=== PATIENT | female | born 1960 | race Caucasian/White ===

== ENCOUNTER → 2023-06-21 15:09 | Outpatient (BNVA) | payer MEDICAID, SELFPAY | PROVIDERS: Visit Provider Surgery | DX: Z90.49 Acquired absence of other specified parts of digestive tract; R10.9 Unspecified abdominal pain; Z85.038 Personal history of other malignant neoplasm of large intestine | CPT/HCPCS: 99204 ==

== ENCOUNTER 2023-06-24 07:03 | Outpatient (CLI) | payer MEDICAID, SELFPAY ==
--- NOTE | 2023-06-24 07:15 | US_ITS ---
WS: [id number] RIGHT UPPER QUADRANT ULTRASOUND HISTORY: abdominal pain COMPARISON: None available. Liver: 16.1 cm in length. Normal size liver. There is a hyperechoic area in the central RIGHT lobe me asuring 3.0 x 4.1 x 2.5 cm. No bile duct dilatation. No hypoechoic mass. Portal Vein: Normal hepatopetal flow with monophasic waveform. Gallbladder: Gallbladder is distended with numerous stones and shadowing. Very small amount of gallbl adder lumen remains. No wall thickening. CBD: 0.4 cm Pancreas: Normal size and echogenicity. Right kidney: 6.9 cm in length. Atrophied RIGHT kidney. There is diffuse cortical thinning throughout the kidney. No mass or hydronephrosis. Normal vascularity is identified within the kidney. Aorta and IVC: Unremarkable abdominal aorta and IVC. No ascites. IMPRESSION: 1. Cholelithiasis without acute cholecystitis. Numerous stones are present in the gallbladder. No bi le duct dilatation. 2. Hyperechoic mass in the central liver measures 3.0 x 4.1 x 2.5 cm. Suspect this is most likely a benign hepatic hemangioma. With no prior studies for comparison suggest follow-up CT abdomen with hem angioma core protocol. 3. Atrophied RIGHT kidney. Diffuse cortical thinning with no obstruction.
== END 2023-06-24 07:04 | disposition home or self-care (01) ==
LOC: RAD 07:03
PROVIDERS: Visit Provider Surgery
DX: K80.20 Calculus of gallbladder without cholecystitis without obstruction (principal); R16.0 Hepatomegaly, not elsewhere classified; N26.1 Atrophy of kidney (terminal)
CPT/HCPCS: 76705

== ENCOUNTER 2023-10-28 05:53 | Day surgery (SDC) | payer MEDICAID, SELFPAY ==
[2023-10-28 06:08] VITALS: BP 88/71; PULSE 93; RESP 18; TEMP 36.3; O2SAT 97
--- NOTE | 2023-10-28 06:08 | W.PM.OPSFHP ---
Same Day Surgery H&P Indication for Procedure/HPI DATE OF PROCEDURE: October 28, 2023 CHIEF COMPLAINT/INDICATIONFOR SURGICAL PROCEDURE: need for screening colonoscopy PREOP DIAGNOSIS: need for screening colonoscopy PLANNED PROCEDURE: Operation Date: 10/28/23 07:00 Proposed Procedures p Colonoscopy 07800, G0105, Z85.048(Not Applicable) - Baldomero Ochoa MD Medications/Allergies* Home Medications Medication Instructions Recorded Confirmed Type atorvastatin 20 mg tablet 20 mg PO DAILY 06/21/23 10/26/23 History biotin 1 mg capsule 1 mg PO DAILY 06/21/23 10/26/23 History levothyroxine 88 mcg capsule 88 mcg PO ONCE 06/21/23 10/26/23 History multivitamin 1 tab PO DAILY 06/21/23 10/26/23 History Allergies/Adverse Reactions Allergy/AdvReac Type Severity Reaction Status Date / Time Sulfa (Sulfonamide Allergy tongue Verified 10/26/23 12:03 Antibiotics) swelling Pertinent History/Comorbid Conditions* Surgical History (Updated 07/23/23 @ 15:54 by Toshia Escalona) History of low anterior resection of rectum Family History (Updated 06/21/23 @ 15:20 by MARTELL Ramsey) Denies family history of Anesthesia complication Social History Smoking and tobacco/nicotine status: never used tobacco/nicotine Alcohol intake: current Alcohol intake frequency: holidays/special occasions only Pertinent Exam Findings alert, oriented x 3 and clear to auscultation bilaterally Recommendations Surgery/Procedure today Coding Level of Care Code Acute Code for Chg Fwd
[2023-10-28 06:09] VITALS: BMI 25.2
[2023-10-28] MEDS: sodium chloride 0.9% 1,000 ML 30 ML IV (06:26)
--- NOTE | 2023-10-28 06:36 | ANES.PREANE2 ---
Pre-Anesthetic Assessment Height/Weight: Height 1.68 m Weight 70.76 kg Temp Pulse Resp BP Pulse Ox O2 Del Method 97.3 F L 93 18 88/71 97 Room Air 10/28/23 06:08 10/28/23 06:08 10/28/23 06:08 10/28/23 06:08 10/28/23 06:08 10/28/23 06:08 Preop Diagnosis: need for screening colonoscopy Operation Date: 10/28/23 07:00 Proposed Procedures p Colonoscopy 42312, G0105, Z85.048(Not Applicable) - Baldomero Ochoa MD Familial anesthetic complications: none Last intake: Intake Last Liquid Date 10/27/23 Last Liquid Time 23:30 Last Solid Date 10/26/23 Social Cannibas use 1x week. last smoked 1700 10/27/23 Airway Submandibular: within normal limits Cervical ROM: within normal limits Mallampati: Class II Dentition: false (upper plate) Pulmonary None reported CV/HEM BP 88/71 upon arrival not symptomatic IVF given. 2016 spot on Kidney or Liver due for CT after this colonoscopy. Recto-colon Cancer found in 2017 colon resection. Hepatic see comment above. GI None reported Metabolic Hyperlipidemia and Thyroid Disease [facility] [place] None reported Neuropsych Depression Anesthetic Plan ASA status: 2 Anesthesia: MAC Medications/Allergies Home Medications Medication Instructions Recorded Confirmed Last Taken Type atorvastatin 20 mg tablet 20 mg PO DAILY 06/21/23 10/26/23 10/26/23 History biotin 1 mg capsule 1 mg PO DAILY 06/21/23 10/26/23 10/26/23 History levothyroxine 88 mcg capsule 88 mcg PO ONCE 06/21/23 10/26/23 10/26/23 History multivitamin 1 tab PO DAILY 06/21/23 10/26/23 10/26/23 History Allergies Allergy/AdvReac Type Severity Reaction Status Date / Time Sulfa (Sulfonamide Allergy tongue Verified 10/28/23 06:12 Antibiotics) swelling Current Medications Generic Name Dose Route Start Last Admin Trade Name Freq PRN Reason Stop Dose Admin Sodium Chloride 1,000 mls @ 30 mls/hr 10/28/23 06:00 10/28/23 06:26 Sodium Chloride 0.9% IV 10/29/23 05:59 30 mls/hr .Q24H JOMAR Administration PFSH Anesthesia Surgical History History of low anterior resection of rectum Family History Denies family history of Anesthesia complication Social History Smoking and tobacco/nicotine status: never used tobacco/nicotine Alcohol intake: current Alcohol intake frequency: holidays/special occasions only Data Anesthesia Cardiac Studies: No Data to Display
[2023-10-28 07:34] VITALS: BP 82/56; PULSE 82; RESP 16; TEMP 36.1; O2SAT 95
[2023-10-28 07:48] VITALS: BP 86/66; PULSE 74; RESP 16; O2SAT 95
[2023-10-28 08:02] VITALS: BP 88/74; PULSE 74; RESP 18; O2SAT 99
--- NOTE | 2023-10-28 08:10 | ANE.PACU2 ---
Inpatient post-anesthesia follow up: Airway intact: Yes Vital signs: Temperature 97 F Pulse Rate 74 Respiratory Rate 18 Blood Pressure 88/74 Pulse Oximetry 99 Oxygen Delivery Me thod Room Air Oxygen Flow Rate Fraction of Inspir ed Oxygen Hydration adequate: Yes Nausea and vomiting: No Pain level: 1 Mental status: Baseline
== END 2023-10-28 08:11 | disposition home or self-care (01) ==
PROVIDERS: PCP Family Medicine; Visit Provider Surgery
PROC: 0DJD8ZZ Inspection of Lower Intestinal Tract, Via Natural or Artificial Opening Endoscopic (ICD-10-PCS; CPT 45378; principal; 2023-10-28 07:00)
DX: Z12.11 Encounter for screening for malignant neoplasm of colon (principal); D12.4 Benign neoplasm of descending colon; Z90.49 Acquired absence of other specified parts of digestive tract; E78.5 Hyperlipidemia, unspecified
CPT/HCPCS: 45380; 45385; 88305; J2704; J7030

== ENCOUNTER 2023-11-11 13:24 | Outpatient (CLI) | payer MEDICAID, SELFPAY ==
--- NOTE | 2023-11-11 13:58 | XR_ITS ---
WS: [email or web address] Left hand, 2 views, 11/11/2023 Clinical Data: PAIN IN FINGERS Comparison: None. Findings: No fractures or dislocations are seen. The soft tissues are unremarkable. The joint spaces are normal No periarticular demineralization or calcifications are seen. XR/XR hand LT 2V [id number] Impression: Negative left hand.
--- NOTE | 2023-11-11 13:58 | XR_ITS ---
WS: [email or web address] Right hand, 2 views, 11/11/2023 Clinical Data: PAIN IN FINGERS Comparison: None. Findings: No fractures or dislocations are seen. The soft tissues are unremarkable. The joint space s are normal No periarticular demineralization or calcifications are seen. XR/XR hand RT 2V [id number] Impression: Negative right hand.
== END 2023-11-11 13:25 | disposition home or self-care (01) ==
LOC: RAD 13:29
PROVIDERS: PCP Family Medicine; Visit Provider Family Medicine
DX: M79.644 Pain in right finger(s) (principal)
CPT/HCPCS: 73120

== ENCOUNTER 2023-12-07 08:00 | Outpatient (CLI) | payer MEDICAID, SELFPAY ==
--- NOTE | 2023-12-07 08:01 | CTR_ITS ---
PROCEDURE INFORMATION: Exam: CT Abdomen And Pelvis Without And With Contrast Exam date and time: 12/07/2023 8:42 AM Age: 63 years old Clinical indication: Abnormal findings; Abnormal radiologic finding of the abdomen; Radiologic exam and body structure: US gb; Patient HX: HX of colorectal cancer; Additional info: Hemangioma, iv/poinclude liver protocolpatient will be out of town from 08/15-10/09/23 TECHNIQUE: Imaging protocol: Computed tomography of the abdomen and pelvis without and with contrast. Radiation optimization: All CT scans at this facility use at least one of these dose optimization techniques: automated exposure control; mA and/or kV adjustment per patient size (includes targeted exams where dose is matched to clinical indication); or iterative reconstruction. Contrast material: OMNI 350; Contrast volume: 100 ml; Contrast route: INTRAVENOUS (IV); COMPARISON: US gall bladder [id number] 06/24/2023 7:26 AM RADIATION DOSE METRICS: Total DLP (mGy-cm): 1362.18 FINDINGS: Lungs: No significant pathology at the imaged lung bases. Esophagus: Mural thickening distal thoracic esophagus. Diaphragm: Small hiatal hernia. Liver: There is a irregularly-shaped hypodensity in the central liver measuring 2.4 cm in diameter on series 3, image 20, series 4 image 20, series 5 image 21. No significant change in on arterial and portal venous phases. Delayed phase there is minimal peripheral enhancement without definite nodular morphology. No other significant focal liver pathology is seen. Gallbladder and biliary ducts: Cholelithiasis. No biliary dilatation. Pancreas: No significant pancreatic pathology. Spleen: No significant splenic pathology. Adrenal glands: No significant adrenal pathology. Kidneys and ureters: Asymmetric right renal cortical hypoplasia and/or atrophy. Subcentimeter renal cortical hypodensities, indeterminate by criteria but statistically most likely representing cysts. Stomach and bowel: Large amount of colonic stool. Suture line is present the level of the rectum. Appendix: Appendix within normal limits. Intraperitoneal space: No ascites or free air. Vasculature: No abdominal aortic aneurysm. Lymph nodes: No lymphadenopathy. Urinary bladder: Unremarkable urinary bladder. Reproductive: No significant uterine pathology. No significant adnexal pathology. Bones/joints: Marked degenerative disc disease is present at L4-L5 and L5-S1. There is a minimal anterolisthesis of L2 on L3. Soft tissues: Small fat containing umbilical hernia. CT/CT abdomen pelvis wo/w [id number] IMPRESSION: 1. Indeterminate 2.4 cm hepatic lesion. Although this may represent atypical hemangioma with a large central scar, other pathology including atypical metastatic disease cannot be completely excluded. MRI recommended for further assessment. 2. Prior rectal surgery. 3. Cholelithiasis. 4. Asymmetric right renal cortical atrophy and/or hypoplasia.
[2023-12-07 08:48] LABS: Blood Urea Nitrogen 20 mg/dL (8-23); Glomerular Filtration Rate 41.4 mL/min (90-130)
[2023-12-07] MEDS: iohexol 350 mg/mL 500 mL Btl (per mL) IV (09:06)
== END 2023-12-07 08:01 | disposition home or self-care (01) ==
PROVIDERS: Radiology Diagnostic Radiology; PCP Family Medicine; Visit Provider Surgery
DX: D18.00 Hemangioma unspecified site (principal); K22.2 Esophageal obstruction; K80.20 Calculus of gallbladder without cholecystitis without obstruction; Q60.3 Renal hypoplasia, unilateral; M51.36 Other intervertebral disc degeneration, lumbar region
CPT/HCPCS: 74178; 82565; 84520; Q9967

== ENCOUNTER 2024-01-03 06:35 | Outpatient (CLI) | payer MEDICAID, SELFPAY ==
--- NOTE | 2024-01-03 06:45 | US_ITS ---
WS: [email or web address] ULTRASOUND SOFT TISSUES RIGHT shoulder HISTORY: Right upper extremity mass COMPARISON: None available. TECHNIQUE: 2-D and color Doppler imaging is submitted. Palpable area associated with the RIGHT shoulder. There is a masslike configuration in the area of pa lpable abnormality. This is a mixed echogenic mass with echogenic linear echogenic foci. Mass measure s 5.2 x 2.0 x 6.7 cm. This is elliptical in shape. There is slight mass effect upon the adjacent musc les. On some of the additional imaging there is evidence that this mass may be larger than described. No vascularity. US/US soft tissue/extremity [id number] IMPRESSION: 1. Large heterogeneous soft tissue mass with ill-defined borders is nearly iso echoic to the adjacent soft tissues. This could be a lipoma. There is no increa sed vascularity. For further evaluation MRI RIGHT shoulder for soft tissue can be obtained.
== END 2024-01-03 06:36 | disposition home or self-care (01) ==
LOC: RAD 06:35
PROVIDERS: PCP Family Medicine; Visit Provider Surgery
DX: R22.31 Localized swelling, mass and lump, right upper limb (principal); M79.89 Other specified soft tissue disorders
CPT/HCPCS: 76882

== ENCOUNTER 2024-01-17 13:26 | Outpatient (CLI) | payer MEDICAID, SELFPAY ==
--- NOTE | 2024-01-17 13:45 | MR_ITS ---
WS: [email or web address] MRI ABDOMEN WITH AND WITHOUT CONTRAST. COMPARISON: Gallbladder ultrasound 06/24/2023, CT abdomen 12/07/2023 Multiplanar, multisequence imaging is performed with and without contrast. MultiHance 15 mL. History: History of colorectal cancer. Indeterminate liver mass. Liver is normal size. No significant hepatic steatosis. There is no intrahepatic bile duct dilatation . Portal vein is normal. Normal enhancement of the portal vein. In the central liver towards the betty hepatis and just posterior to the middle hepatic vein is a T2 hyperintense irregular shaped mass measuring 2.0 x 2.5 x 1.9 cm. Masses low signal on the more T1-marc ghted sequences. On the postcontrast imaging there is very slight peripheral discontinuous nodular en hancement which is typically seen with a cavernous hemangioma. On the delayed imaging the mass does n ot completely fill-in but closely follows the blood pool on all sequences. On the delayed imaging mas s does not completely fill-in. No additional liver lesions are identified. Spleen is normal size. No adrenal mass. Normal pancreas. Normal kidneys. Numerous stones layering wit hin the gallbladder. Common bile duct is normal. No ascites. No adenopathy. MR/MR abdomen wo/w con* [id number] IMPRESSION: 1. Irregular shaped central hepatic mass measuring 2.0 x 2.5 x 1.9 cm. This ma ss was described on a prior ultrasound and CT. Most likely etiology is an atypi naty hemangioma which does not completely fill in after IV contrast. Less likely metastatic lesion. Please note the ultrasound from 06/24/2023 demonstrated this liver lesion which has not increased in size. Suggest 3-month imaging follow-u p to confirm this is a cavernous hemangioma due to its atypical appearance. Fol low-up can be done by CT or MRI using hemangioma protocol. 2. No ascites. 3. Cholelithiasis.
[2024-01-17] MEDS: gadobenate dimeglumine 20 mL vial 15 ML IV (14:28)
== END 2024-01-17 13:27 | disposition home or self-care (01) ==
LOC: RAD 13:28
PROVIDERS: PCP Family Medicine; Visit Provider Surgery
DX: R16.0 Hepatomegaly, not elsewhere classified (principal); K80.20 Calculus of gallbladder without cholecystitis without obstruction
CPT/HCPCS: 74183

== ENCOUNTER 2024-01-31 14:37 | Outpatient (CLI) | payer MEDICAID, SELFPAY ==
--- NOTE | 2024-01-31 15:15 | MR_ITS ---
WS: [email or web address] MRI RIGHT SHOULDER HISTORY: lipoma COMPARISON: 07/08/2016, ultrasound 01/03/2024 TECHNIQUE: Multiplanar sequences of the shoulder joint are submitted. Ill-defined heterogeneous mass seen by recent ultrasound is identified lateral to the superior deltoi d muscle. Mass is ill-defined and blends in with the adjacent soft tissue structures. The entire es th of the mass is not included on this MRI of the shoulder. Mass measures at least 3.5 x 2.5 cm and f ollows fat signal on all sequences. Mild AC joint arthritis. Downsloping of the acromion. Small amount of fluid in the subacromial subdel toid bursa. Biceps tendon is present in the bicipital groove. Intratendinous increased signal and the bicipital groove with thickening of the tendon. Increased fluid within the tendon sheath. No os acro mion. The rotator cuff tendons demonstrate mild supraspinatus atrophy. Insertion site tear with intrasubsta nce extension. Subscapularis tendon is markedly thickened distally. Severe tendinopathy is likely. Th e tendon is thickened and with increased T2 signal. The tendons and labrum are not as well visualized on this examination as a true MRI of the shoulder. The MRI technique was utilized more for the soft tissue mass over the deltoid. Degenerative cystic changes in the humeral head. MR/MR shoulder RT wo con* [id number] IMPRESSION: 1. Palpable mass along the lateral humerus follows fat signal on all sequences consistent with a lipoma. The entire length of the lipoma was not included ext ends over a length of at least 6.3 cm. AP 2.5 cm in transverse 3.5 cm. Lipoma w as also described on a prior MRI from 07/08/2016. 2. Partial tear biceps tendon in the bicipital groove. Tear extends into the r otator cuff interval and labral complex. 3. Mild supraspinatus muscle atrophy. Supraspinatus insertion site tear with i ntrasubstance extension. 4. Markedly thickened subscapularis tendon most consistent with severe tendino syed.
== END 2024-01-31 14:38 | disposition home or self-care (01) ==
LOC: RAD 14:38
PROVIDERS: PCP Family Medicine; Visit Provider Surgery
DX: S46.211A Strain of muscle, fascia and tendon of other parts of biceps, right arm, initial encounter (principal); M75.111 Incomplete rotator cuff tear or rupture of right shoulder, not specified as traumatic; M75.91 Shoulder lesion, unspecified, right shoulder; R22.31 Localized swelling, mass and lump, right upper limb; X58.XXXA Exposure to other specified factors, initial encounter
CPT/HCPCS: 73221

== ENCOUNTER 2024-05-11 11:12 | Outpatient (CLI) | payer MEDICAID, SELFPAY ==
--- NOTE | 2024-05-11 11:26 | MR_ITS ---
WS: [email or web address] MRI ABDOMEN WITH AND WITHOUT CONTRAST. COMPARISON: 01/17/2024, CT 12/07/2023 Multiplanar, multisequence imaging is performed with and without contrast. MultiHance 16 mL. History: Follow-up liver mass. History of colon/rectal CA. Liver: Central hepatic mass is reidentified with irregular margins. Mass is low signal on the more T1 -weighted sequences but of increased signal on the T2 sequences. Mass measures 1.9 x 2.4 cm with out increase in size since the prior study. Mass is increased signal on the T2 sequence. Mass abuts the c entral middle hepatic vein and is superior to the portal vein. On the postcontrast imaging there is p eripheral enhancement but this is not a typical enhancement pattern for a hemangioma. The enhancement in the periphery does not correlate with blood pool imaging. There is no obvious progression of this mass since the prior study. No intrahepatic duct dilatation. Cholelithiasis. Numerous stones in the gallbladder. Mild atrophy of the RIGHT kidney. RIGHT kidney me asures 7.0 cm in length. No ascites or adenopathy. Pancreas is normal. Normal common bile duct. MR/MR abdomen wo/w con* [id number] IMPRESSION: 1. Peripherally enhancing mass in the central liver cannot be confirmed as a b enign hemangioma. There has been no increase in size since 01/17/2024. Different ial includes cholangiocarcinoma, metastatic disease and HCC. Recommend PET/CT i maging at this time. This mass would be difficult to biopsy due to its central position in the liver. 2. Cholelithiasis. 3. No ascites or adenopathy.
[2024-05-11] MEDS: gadobenate dimeglumine 20 mL vial IV (12:37)
== END 2024-05-11 11:13 | disposition home or self-care (01) ==
PROVIDERS: PCP Family Medicine; Visit Provider Family Medicine
DX: K76.9 Liver disease, unspecified (principal); R16.0 Hepatomegaly, not elsewhere classified; K80.20 Calculus of gallbladder without cholecystitis without obstruction; N26.1 Atrophy of kidney (terminal); R93.2 Abnormal findings on diagnostic imaging of liver and biliary tract
CPT/HCPCS: 74183

== ENCOUNTER 2024-06-16 08:10 | Outpatient (CLI) | payer MEDICAID, SELFPAY ==
--- NOTE | 2024-06-16 08:27 | PETR_ITS ---
PROCEDURE INFORMATION: Exam: PET/CT Skull Base to Mid-thigh Exam date and time: 06/16/2024 9:30 AM Age: 64 years old Clinical indication: Evaluate indeterminate lesion in the central liver followed since 12/07/2023 with no significant interval change. 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 LABS AND CLINICAL REPORTS: Glucose: 122 mg/dl Treatment strategy for malignancy (PET staging): Initial Staging (PI) TECHNIQUE: Imaging protocol: Following at least four-hour fasting and following the injection of radiopharmaceutical, low dose CT images were obtained. Then, PET images were obtained. Attenuation corrected images were constructed using the CT scan. Fused images of PET and CT were reviewed. The standardized uptake values (SUV) reported below are maximum values within a region of interest, expressed in gm/ml. Exam includes orbital meatal line to mid-thigh. SUV normalization method: BodyWeight Radiopharmaceutical: 11.28 mCi F-18 FDG (Fluorodeoxyglucose), IV. Time of imaging post radiopharmaceutical administration: 45 minutes Injection site: RAC COMPARISON: CT abdomen pelvis wo/w 12/07/2023, MRI abdomen 05/11/2024 FINDINGS: Brain: Normal physiologic uptake. Pharynx: No abnormal uptake. Larynx: No abnormal uptake. Lungs, pleura and trachea: No abnormal uptake. No suspicious lung nodules or masses. 4 mm calcified granulomas in the left upper lobe and the right lower lobe (series 202, images 91 and 103). No pleural effusion. Heart: No abnormal uptake. There is no cardiomegaly. There is no pericardial effusion. Mediastinal space: No abnormal uptake. Liver: No abnormal uptake. Maximum uptake is 3.7 SUV. 2.5 x 1.7 cm cm sharply-circumscribed hypodense focus in the segment 8 of the liver on series 202, image 129 responding to the finding of question on the prior exams is isointense to normal liver parenchyma compatible with benign finding, likely hemangioma. Gallbladder and biliary ducts: No abnormal uptake. Layering calcified gallstones in the gallbladder. Pancreas: No abnormal uptake. Spleen: No abnormal uptake. No splenomegaly. Adrenal glands: No abnormal uptake. No nodules. Kidneys and ureters: Normal physiologic uptake. No hydronephrosis. The right kidney is smaller than normal in keeping with partial atrophy. Stomach and bowel: No abnormal uptake. Unremarkable anastomosis in the upper rectum. Vasculature: No abnormal uptake. No abdominal aortic aneurysm. Lymph nodes: No FDG avid lymphadenopathy in the neck, chest, abdomen, pelvis, and extremities. Skeleton: Increased synovial uptake in both shoulders and along the lateral aspect of bilateral greater femoral trochanters suggestive of benign inflammatory findings. Soft tissues: 0.9 cm nodular focus of mildly increased uptake of 4.1 SUV in the anterior aspect of the left deltoid muscle probably at the junction with the tendon (series 301, image 64) likely represents benign inflammatory finding. There is diffuse linear benign muscular uptake in the arms and forearms more prominently on the left side. PET/PET skull to thigh INIT [id number] IMPRESSION: No abnormal findings concerning for malignancy. Specifically, no abnormal uptake within the liver lesion of question likely representing atypical hemangioma. About 0.9 cm nodular focus of increased intramuscular uptake of 4.1 SUV in the anterior aspect of the left deltoid muscle adjacent to the tendon likely represents benign inflammatory finding. There is benign inflammatory synovial uptake in the shoulders.
== END 2024-06-16 08:11 | disposition home or self-care (01) ==
LOC: RAD 08:10
PROVIDERS: PCP Family Medicine; Visit Provider Family Medicine
DX: K76.9 Liver disease, unspecified (principal); J84.10 Pulmonary fibrosis, unspecified; R93.2 Abnormal findings on diagnostic imaging of liver and biliary tract; K80.20 Calculus of gallbladder without cholecystitis without obstruction; R93.421 Abnormal radiologic findings on diagnostic imaging of right kidney; Z98.890 Other specified postprocedural states; R93.7 Abnormal findings on diagnostic imaging of other parts of musculoskeletal system
CPT/HCPCS: 78815; A9552

== ENCOUNTER 2024-07-04 14:32 | Outpatient (CLI) | payer MEDICAID, SELFPAY ==
--- NOTE | 2024-07-04 14:37 | MM_ITS ---
WS: [email or web address] BILATERAL 3D TOMOSYNTHESIS DIGITAL SCREENING MAMMOGRAPHY WITH CAD CLINICAL INFORMATION: SCREEN HISTORY: Screening mammogram. No current complaints. COMPARISON: None. TECHNIQUE: Bilateral CC and MLO views. FINDINGS: The breasts are composed of heterogeneous fibroglandular density tissue, which can limit the detection of small underlying mass lesions. Partially obscured ovoid nodule outer lower LEFT breast measuring 8 mm. Recommend further evaluation with LEFT breast diagnostic mammography and ultrasound. Unremarkable RIGHT breast. MM/MM [facility] tomosynthesis [id number] IMPRESSION: DENSITY:The breasts are heterogeneously dense, which may obscure small masses. BI-RADS: 0 - Incomplete: Need additional imaging evaluation FOLLOW UP: Need Additional Imaging Recommend LEFT breast diagnostic mammography and ultrasound.
== END 2024-07-04 14:33 | disposition home or self-care (01) ==
PROVIDERS: PCP Family Medicine; Visit Provider Family Medicine
DX: Z12.31 Encounter for screening mammogram for malignant neoplasm of breast (principal); R92.333 Mammographic heterogeneous density, bilateral breasts; N63.23 Unspecified lump in the left breast, lower outer quadrant
CPT/HCPCS: 77063; 77067

== ENCOUNTER 2024-07-27 14:17 | Outpatient (CLI) | payer MEDICAID, SELFPAY ==
--- NOTE | 2024-07-27 14:24 | MM_ITS ---
WS: [email or web address] LEFT 3D TOMOSYNTHESIS DIGITAL MAMMOGRAPHY WITH CAD CLINICAL INFORMATION: LEFT ABNORMAL MAMMOGRAM HISTORY: Additional views COMPARISON: 07/04/2024 TECHNIQUE: 2 views of the left breast were obtained. FINDINGS: The left breast is composed of heterogeneous fibroglandular density tissue, which can limit the detection of small underlying mass lesions. Previously described ovoid nodularity compresses out today on the spot compression views. No other suspicious findings. Recommend return to annual screening mammography. MM/MM diag tomosynthesis [id number] IMPRESSION: DENSITY: The breasts are heterogeneously dense, which may obscure small masses. BI-RADS: 2 - Benign FOLLOW UP: 1 Year Follow-up Recommend return to annual screening mammography.
== END 2024-07-27 14:18 | disposition home or self-care (01) ==
PROVIDERS: PCP Family Medicine; Visit Provider Family Medicine
DX: R92.8 Other abnormal and inconclusive findings on diagnostic imaging of breast (principal); R92.332 Mammographic heterogeneous density, left breast
CPT/HCPCS: 77061; G0279

== ENCOUNTER 2024-11-30 15:11 | Outpatient (CLI) | payer MEDICAID, SELFPAY ==
--- NOTE | 2024-11-30 15:21 | XRR_ITS ---
PROCEDURE INFORMATION: Exam: XR Right Knee Exam date and time: 11/30/2024 3:53 PM Age: 64 years old Clinical indication: Pain; Knee; Right; Additional info: Chronic R knee pain TECHNIQUE: Imaging protocol: Radiologic exam of the right knee. Views: 3 views. COMPARISON: US soft tissue/extremity [id number] 01/03/2024 6:44 AM FINDINGS: Bones/joints: There is mild degenerative change with loss of joint space and osteophyte formation. No acute fracture or dislocation. No acute or aggressive bone lesion noted. No evidence of bone destruction. Old-appearing distal femur healed deformity is partially assessed. Small nonaggressive lytic lesion present in lateral tibial plateau area. There is mild chondrocalcinosis. Soft tissues: Unremarkable. XR/XR knee RT 3V* [id number] IMPRESSION: No acute findings.
== END 2024-11-30 15:12 | disposition home or self-care (01) ==
LOC: RAD 15:15
PROVIDERS: PCP Family Medicine; Visit Provider Family Medicine
DX: M11.261 Other chondrocalcinosis, right knee (principal); M25.561 Pain in right knee
CPT/HCPCS: 73562